=== PATIENT | female | born 1940 | race Caucasian/White ===

== ENCOUNTER → 2018-04-04 10:18 | Outpatient (CLI) | payer MEDICARE, OTHER | END | disposition home or self-care (01) | LOC: D.US 10:18 | DX: E04.1 Nontoxic single thyroid nodule (principal) ==

== ENCOUNTER → 2018-09-12 09:48 | Outpatient (CLI) | payer MEDICARE, OTHER | END | disposition home or self-care (01) | LOC: D.US 09:48 | DX: E04.1 Nontoxic single thyroid nodule (principal) ==